=== PATIENT | male | born 1925 | race Caucasian/White ===

== ENCOUNTER 2017-02-18 14:25 | Emergency (ER) | payer OTHER ==
[~2017-02-18] VITALS: Ht 170.2 cm; Wt 78.5 kg
[~2017-02-18 14:25] MED LIST: ASPI-232 PO; CARV3.12 PO; FINA5TAB PO; INSUINJ8 SC; LEVO50TA6 PO; METF500T PO; ROSU40TA PO; TAMS0.4C59 PO; [UNRECOGNIZED DRUG - CODE] SL
[2017-02-18 14:32] VITALS: TEMP 36.9; Ht 170.2 cm; Wt 78.5 kg
--- NOTE | 2017-02-18 14:53 | EMERGENCY ROOM VISIT NOTE ---
History Report prepared by Dilshad: Mat Griffith Under the Supervision of: Dr. Taye Koo M.D. First contact with patient: 14:33 Chief Complaint: ABNORMAL DIAGNOSTIC TESTING Stated Complaint: LETHARGY History of Present Illness The patient is a 89 year old male who presents to the Emergency Room with complaints of constant left ear pressure starting earlier today. The patient states that it feels like his left ear is blocked. The patient is denying any chest pain, and he states that he was nauseous yesterday. He states that he had some right arm pain last week, however this is feeling better. The patient has a history of a CABG 20 years ago. Source of History: patient Onset: earlier today Position: ear (left) Quality: pressure Timing: constant Associated Symptoms: + nausea, No chest pain Review of Systems See HPI for pertinent positives & negatives. A total of 10 systems reviewed and were otherwise negative. Past Medical & Surgical Medical Problems: (1) AORTOCORONARY BYPASS (2) CHRONIC KIDNEY DISEASE, STAGE III (MODERATE) (3) CORON ATHEROSCLER NOS TYPE VESSEL, KAKE OR GRAFT (4) DIAB FRIEDA WO COMPL, TYPE II OR UNSPEC TYPE, NOT UNCNTRLD (5) ESOPHAGEAL REFLUX (6) HYPERLIPIDEMIA NEC/NOS (7) HYPERTENSION NOS (8) HYPOTHYROIDISM NOS (9) MACULAR DEGENERATION NOS Social History Smoking Status: Never Smoker Alcohol Use: none Marital Status: Occupation Status: retired Current/Historical Medications Unable to Obtain Active Prescriptions or Reported Meds Allergies Coded Allergies: Aspirin (Verified Allergy, Unknown, `, 10/22/16) 325mg causes GI up set, can tolerate 81mg Carisoprodol (Verified Allergy, Unknown, (SOMA), 10/22/16) Physical Exam Vital Signs Date Time Temp Pulse Resp B/P Pulse Ox O2 Delivery O2 Flow Rate FiO2 02/18/17 16:30 74 20 141/76 96 Room Air 02/18/17 14:32 36.9 67 18 160/92 95 Room Air Physical Exam GENERAL: Patient is well appearing and in no acute distress, smiling and laughing. HEENT: Moderate cerumen impaction of the left ear and mild impaction of the right ear. No acute trauma, normocephalic atraumatic, mucous membranes moist, no nasal congestion, no scleral icterus. NECK: No stridor, no adenopathy, no meningismus, trachea is midline. LUNGS: No dyspnea. Clear to auscultation and equal bilaterally. No wheeze, no rhonchi. HEART: Regular rate and rhythm. No murmurs, rubs, gallops appreciated. ABDOMEN: Soft, nontender, bowel sounds positive, no masses appreciated, no peritonitis. BACK: No midline tenderness, no CVA tenderness EXTREMITIES: Normal motion all extremities, no cyanosis, no edema. NEUROLOGIC: Alert and oriented, no acute motor or sensory deficits, no focal weakness, cranial nerves grossly intact. SKIN: No rash, no jaundice, no diaphoresis. Medical Decision & Procedures ER Provider Diagnostic Interpretation: Radiology results and stated below per my review and radiologist interpretation: CHEST ONE VIEW PORTABLE CLINICAL HISTORY: Chest pain. COMPARISON STUDY: Chest radiograph July 18, 2011. FINDINGS: There are median sternotomy wires and clips from bypass grafting. Pulmonary vascularity is normal. No pneumothorax or pleural effusion is present. There is no consolidation. The appearance of the chest is unchanged. Cardiomediastinal silhouette is stable. IMPRESSION: No acute cardiopulmonary findings. Electronically signed by: Maximino Veronica M.D. 02/18/2017 2:59 PM Dictated Date/Time: 02/18/2017 2:59 PM Laboratory Results 02/18/17 14:45 Red Blood Count 4.27, Mean Corpuscular Volume 89.5, Mean Corpuscular Hemoglobin 30.4, Mean Corpuscular Hemoglobin Concent 34.0, Mean Platelet Volume 8.5, Neutrophils (%) (Auto) 35.9, Lymphocytes (%) (Auto) 44.5, Monocytes (%) (Auto) 13.3, Eosinophils (%) (Auto) 5.8, Basophils (%) (Auto) 0.4, Neutrophils # (Auto ) 2.42, Lymphocytes # (Auto) 3.01, Monocytes # (Auto) 0.90, Eosinophils # (Auto ) 0.39, Basophils # (Auto) 0.03 02/18/17 14:45 Test 02/18/17 14:45 White Blood Count 6.76 K/uL (4.8-10.8) Red Blood Count 4.27 M/uL (4.7-6.1) Hemoglobin 13.0 g/dL (14.0-18.0) Hematocrit 38.2 % (42-52) Mean Corpuscular Volume 89.5 fL (80-100) Mean Corpuscular Hemoglobin 30.4 pg (25-34) Mean Corpuscular Hemoglobin Concent 34.0 g/dl (32-36) Platelet Count 207 K/uL (130-400) Mean Platelet Volume 8.5 fL (7.4-10.4) Neutrophils (%) (Auto) 35.9 % Lymphocytes (%) (Auto) 44.5 % Monocytes (%) (Auto) 13.3 % Eosinophils (%) (Auto) 5.8 % Basophils (%) (Auto) 0.4 % Neutrophils # (Auto) 2.42 K/uL (1.4-6.5) Lymphocytes # (Auto) 3.01 K/uL (1.2-3.4) Monocytes # (Auto) 0.90 K/uL (0.11-0.59) Eosinophils # (Auto) 0.39 K/uL (0-0.5) Basophils # (Auto) 0.03 K/uL (0-0.2) RDW Standard Deviation 43.9 fL (36.4-46.3) RDW Coefficient of Variation 13.4 % (11.5-14.5) Immature Granulocyte % (Auto) 0.1 % Immature Granulocyte # (Auto) 0.01 K/uL (0.00-0.02) Anion Gap 13.0 mmol/L (3-11) Est Creatinine Clear Calc Drug Dose 31.2 ml/min Estimated GFR () 47.2 Estimated GFR (Non- 40.7 BUN/Creatinine Ratio 18.9 (10-20) Calcium Level 9.8 mg/dl (8.5-10.1) Total Bilirubin 0.6 mg/dl (0.2-1) Aspartate Amino Transf (AST/SGOT) 25 U/L (15-37) Alanine Aminotransferase (ALT/SGPT) 24 U/L (12-78) Alkaline Phosphatase 45 U/L (45-117) Troponin I < 0.015 ng/ml (0-0.045) Total Protein 7.5 gm/dl (6.4-8.2) Albumin 3.5 gm/dl (3.4-5.0) Globulin 4.0 gm/dl (2.5-4.0) Albumin/Globulin Ratio 0.9 (0.9-2) Lipase 154 U/L (73-393) Laboratory results as reviewed by me. ECG Indication: other (Ear pain) Rate (beats per minute): 63 Rhythm: sinus rhythm Findings: 1st degree AV block, LBBB, no acute ischemic change, no ectopy Comparison ECG Date: 10/22/16 Change: no significant change ED Course 1433: The patient was evaluated in room C4. A complete history and physical exam was performed. 1447: I reassessed the patient, and his son is here. He is going to follow up with Dr. Zaldivar tomorrow morning. 1500: I discussed the patient's case with Lita Duenas, and she sent him here for evaluation of a new left bundle branch block. 1532: Reevaluated the patient, and he feels good and is walking around the room. 1548: Reevaluated the patient, and he states that he is feeling fine and ready to go home. Discussed results and discharge instructions: he verbalized understanding and agreement. The patient is ready for discharge. Medical Decision Pleasant 89 yr old male arrives from clinic for evaluation of abnormal EKG. Patient notes some nausea and feeling ill yesterday which has resolved. Was being seen for left ear discomfort at clinic when EKG was done and he was sent here for further evaluation. EKG shows LBBB with prolonged AV which is identical to the previous ones he has had. Labs are unremarkable and he feels fine. Ears cleared and sent home. He has scientist appt tomorrow. Abdominal exam is benign without TTP nor evidence of surgical abdomen. Home with son and both are comfortable with this plan. Consults Time Called: 145 Consulting Physician: Lita Duenas Returned Call: 1500 I discussed the patient's case with Lita Duenas, and she sent him here for evaluation of a new left bundle branch block. Impression Primary Impression: Impacted cerumen of both ears Additional Impression: Fatigue Scribe Attestation The scribe's documentation has been prepared under my direction and personally reviewed by me in its entirety. I confirm that the note above accurately reflects all work, treatment, procedures, and medical decision making performed by me. Departure Information Dispostion Home / Self-Care Prescriptions Unable to Obtain Active Prescriptions or Reported Meds Referrals Yamini Parmar M.D. (PCP) Forms HOME CARE DOCUMENTATION FORM, IMPORTANT VISIT INFORMATION Patient Instructions ED Cerumen Impaction, Home Care, [facility] Problem Qualifiers Additional Impression: Fatigue Fatigue type: unspecified Qualified Codes: R53.83 - Other fatigue
[2017-02-18 14:58] LABS: BASO % 0.4 %; BASO ABS # 0.03 K/uL (0-0.2); COMPLETE YES; EOS % 5.8 %; HEMATOCRIT 38.2 % (42-52); IG% 0.1 %; LYMPH % 44.5 %; LYMPH ABS # 3.01 K/uL (1.2-3.4); MEAN CELL VOLUME 89.5 fL (80-100); MEAN CORPUSCULAR HEMOGLOBIN 30.4 pg (25-34); MEAN PLATELET VOLUME 8.5 fL (7.4-10.4); MONO % 13.3 %; NEUT % 35.9 %; PLATELET COUNT 207 K/uL (130-400); RED BLOOD COUNT 4.27 M/uL (4.7-6.1); WHITE BLOOD COUNT 6.76 K/uL (4.8-10.8)
--- NOTE | 2017-02-18 15:01 | DIAGNOSTIC IMAGING REPORT ---
CHEST ONE VIEW PORTABLE CLINICAL HISTORY: Chest pain. COMPARISON STUDY: Chest radiograph July 18, 2011. FINDINGS: There are median sternotomy wires and clips from bypass grafting. Pulmonary vascularity is normal. No pneumothorax or pleural effusion is present. There is no consolidation. The appearance of the chest is unchanged. Cardiomediastinal silhouette is stable. IMPRESSION: No acute cardiopulmonary findings. Electronically signed by: Maximino Veronica M.D. 02/18/2017 2:59 PM Dictated Date/Time: 02/18/2017 2:59 PM
[2017-02-18 15:24] LABS: ALT/SGPT 24 U/L (12-78); BLOOD UREA NITROGEN 28 mg/dl (7-18); BUN/CREATININE RATIO 18.9 (10-20); CARBON DIOXIDE 22 mmol/L (21-32); CHLORIDE 98 mmol/L (98-107); GLUCOSE 175 mg/dl (70-99); SODIUM 133 mmol/L (136-145)
[2017-02-18 15:28] LABS: CALCIUM 9.8 mg/dl (8.5-10.1)
[2017-02-18 15:29] LABS: ALB/GLOB RATIO 0.9 (0.9-2); ALKALINE PHOSPHATASE 45 U/L (45-117); AST/SGOT 25 U/L (15-37)
[2017-02-18 16:30] VITALS: BP 141/76; PULSE 74; O2SAT 96
== END 2017-02-18 17:00 | disposition home or self-care (01) ==
LOC: EDBD 14:25 → C.EDC 14:26
DX: H61.23 Impacted cerumen, bilateral (principal); R53.1 Weakness; I44.0 Atrioventricular block, first degree; I44.7 Left bundle-branch block, unspecified; I25.10 Atherosclerotic heart disease of native coronary artery without angina pectoris; I12.9 Hypertensive chronic kidney disease with stage 1 through stage 4 chronic kidney disease, or unspecified chronic kidney disease; N18.3 Chronic kidney disease, stage 3 (moderate); E11.9 Type 2 diabetes mellitus without complications; E03.9 Hypothyroidism, unspecified; K21.9 Gastro-esophageal reflux disease without esophagitis; Z95.1 Presence of aortocoronary bypass graft; Z88.6 Allergy status to analgesic agent; Z88.8 Allergy status to other drugs, medicaments and biological substances